=== PATIENT | female | born 1965 | race Native Hawaiian/Other Pacific Islander ===

== ENCOUNTER → 2022-04-06 13:50 | Outpatient (CLI) | payer OTHER, MEDICAID, SELFPAY ==
[2022-04-06 14:45] LABS: COVID19 -Nasal RAPID Negative (Negative)
--- NOTE | 2022-04-06 18:16 | DI.NM.S_ITS ---
DATE OF SERVICE: 04/06/2022 PROCEDURE PERFORMED: Exercise treadmill stress test without imaging. ORDERING PROVIDER: Mann Keenan D.O. INDICATIONS: The patient is a 56-year-old hypertensive female with a history of palpitations and reduced exercise capacity. FINDINGS: 1. The patient was able to exercise for 6 minutes, 50 seconds on a standard Dung protocol, suggesting minimally reduced exercise capacity with an YUSEF of +5%, achieving 10.1 METs. 2. She had a slightly accelerated heart rate response to exercise with a resting heart rate of 88 BPM, increasing to a maximum of 174 BPM (106% of her predicted maximum). She had a significant hypertensive blood pressure response to exercise with a resting blood pressure of 160/90, increasing to a peak of 241/102. 3. The patient developed some mild chest discomfort at peak exercise that resolved in recovery. 4. The resting ECG shows sinus rhythm with normal ST segments. There are no significant ST-segment shifts or arrhythmias with exercise, except for rare isolated PVCs. IMPRESSION: 1. Normal exercise treadmill study for ischemia although with exercise-induced chest discomfort. If there is a high degree of clinical suspicion for ischemic heart disease, consider a stress imaging study. 2. Minimally reduced exercise capacity with a significant hypertensive blood pressure response with a peak blood pressure of 241/102. 3. No arrhythmias except for rare, isolated PVCs with stress. Laurita Marti - Srini/nancy doc#: [id number]/job#: [id number] dd: 04/06/2022 17:31:00 dt: 04/06/2022 17:58:00 DICTATING /COPIES TO: Surendra Paul MD COPIES MNE: ARNOL;
== END ==
PROVIDERS: Radiology Diagnostic Radiology; Referring Provider Family Medicine; Visit Provider Family Medicine
DX: R00.2 Palpitations (principal); R03.0 Elevated blood-pressure reading, without diagnosis of hypertension; R68.89 Other general symptoms and signs; Z20.822 Contact with and (suspected) exposure to COVID-19
CPT/HCPCS: 87635; 93017; C9803